=== PATIENT | male | born 1955 | race Hispanic/Latino ===

== ENCOUNTER 2017-06-29 11:42 | Emergency (ER) | payer OTHER ==
[2017-06-29 11:43] VITALS: BMI 27.3
[2017-06-29 11:51] VITALS: TEMP 98
--- NOTE | 2017-06-29 12:09 | ED PDOC ---
Arrival/HPI - General Chief Complaint: Back Pain Time Seen by Provider: 06/29/17 11:48 - History of Present Illness Narrative History of Present Illness (Text): 06/29/17 12:05 Patient is a 61 year old male with a past medical history of A Fib, CHF, and L4/ L5 disc herniation presents to the Emergency department complaining of back pain. Patient says he was bent over lifting a heavy box when he heard a pop and had sudden, sharp, 10/10 pain in his right low back. Patient says it now causes severe pain to try and sit up straight and he remains hunched over. Patient says the pain radiates down his right leg toward his calf. He also admits to numbness under his right 2nd-4th toes, however that is not new to him. Patient says he has a history of L4/L5 disc herniation which causes chronic back pain. Patient takes oxycodone and ultram as well as epidural injections for pain management. Patient denies lower extremity weakness, and numbness/tingling other than that mentioned above. PMH: A Fib, CHF, L4/L5 disc herniation, GERD, anemia Meds: Iron, Carvedilol, Nexium Allergies: denies SH: smokes 1 PPD on and off since 21 years old, denies tobacco and recreational drug use Past Medical History - Past History Past History: No Previous - Infectious Disease Hx of Infectious Diseases: None - Tetanus Immunization Tetanus Immunization: Unknown - Cardiac Hx Cardiac Disorders: Yes Hx Atrial Fibrillation: Yes Hx Pacemaker: No - Pulmonary Hx Respiratory Disorders: Yes Hx Chronic Obstructive Pulmonary Disease (COPD): Yes Other/Comment: X smoker - Quit 3 years ago. Smoked 1ppd. - Neurological Hx Paralysis: No - HEENT Hx HEENT Disorder: No - Renal Hx Renal Disorder: No - Endocrine/Metabolic Hx Endocrine Disorders: No - Hematological/Oncological Hx Blood Disorders: Yes Hx Anemia: Yes Hx Blood Transfusions: Yes Hx Blood Transfusion Reaction: No - Integumentary Hx Dermatological Disorder: No - Musculoskeletal/Rheumatological Hx Musculoskeletal Disorders: Yes Hx Back Pain: Yes - Gastrointestinal Hx Gastrointestinal Disorders: Yes Hx Gall Bladder Disease: Yes Other/Comment: Gallstones - Genitourinary/Gynecological Hx Genitourinary Disorders: No - Psychiatric Hx Emotional Abuse: No Hx Physical Abuse: No Hx Substance Use: No - Surgical History Other/Comment: left arm surgery, b/l hernia repair. - Anesthesia Hx Anesthesia: No Hx Anesthesia Reactions: No Hx Malignant Hyperthermia: No - Suicidal Assessment Feels Threatened In Home Enviroment: No Family/Social History Family/Social History: Unknown Family HX Smoking Status: Former Smoker Hx Alcohol Use: No Hx Substance Use: No Allergies/Home Meds Allergies/Adverse Reactions: Allergies No Known Allergies Allergy (Verified 03/29/16 09:02) Home Medications: Home Meds Medication Instructions Recorded Confirmed Oxycodone Hydrochloride [Oxycodone] 1 tab PO Q6H PRN 12/05/14 06/29/17 Eszopiclone [Lunesta] 3 mg PO HS 06/29/17 06/29/17 traMADol [Ultram] 1 tab PO Q6 06/29/17 06/29/17 Review of Systems - Physician Review All systems were reviewed & negative as marked: Yes - Review of Systems Constitutional: Normal Respiratory: Normal. absent: SOB, Cough Cardiovascular: Normal. absent: Chest Pain, Palpitations, Edema Gastrointestinal: Normal. absent: Abdominal Pain, Constipation, Diarrhea, Nausea, Vomiting Genitourinary Male: Normal. absent: Dysuria, Frequency, Hematuria Musculoskeletal: Back Pain. absent: Neck Pain Skin: Normal Neurological: absent: Headache, Dizziness, Focal Weakness Physical Exam Vital Signs Temp Pulse Resp BP Pulse Ox 06/29/17 11:50 98.0 F 98 H 18 134/88 96 Temperature: Afebrile Pulse: Regular Respiratory Rate: Normal Appearance: Positive for: Well-Appearing, Non-Toxic, Uncomfortable (hunched over holding back in pain) Pain Distress: Moderate Mental Status: Positive for: Alert and Oriented X 3 - Systems Exam Head: Present: Atraumatic, Normocephalic Pupils: Present: PERRL Extroacular Muscles: Present: EOMI Conjunctiva: Present: Normal Mouth: Present: Moist Mucous Membranes Neck: Present: Normal Range of Motion. No: MIDLINE TENDERNESS, Paraspinal Tenderness Respiratory/Chest: Present: Clear to Auscultation, Good Air Exchange. No: Respiratory Distress, Accessory Muscle Use Cardiovascular: Present: Regular Rate and Rhythm, Normal S1, S2. No: Murmurs Abdomen: Present: Normal Bowel Sounds, Other (no bruits or abnormal pulsations) . No: Tenderness, Distention, Peritoneal Signs Back: Present: Midline Tenderness (lumbar spine), Paraspinal Tenderness (lumbar spine), Pain with Leg Raise Upper Extremity: Present: Normal Inspection. No: Cyanosis, Edema Lower Extremity: Present: NORMAL PULSES, Neurovascularly Intact. No: Edema, CALF TENDERNESS Neurological: Present: GCS=15, Speech Normal. No: Normal Sensory Function ( numbness under right foot) Skin: Present: Warm, Dry, Normal Color. No: Rashes Psychiatric: Present: Alert, Oriented x 3, Normal Insight, Normal Concentration Medical Decision Making ED Course and Treatment: 06/29/17 12:22 Patient given Toradol 30 mg, morphine 10 mg, flexeril mg, zofran [address] ordered 06/29/17 13:45 Ct shows degenerative spondylysis, no fractures Patient stable for discharge and pain controlled - RAD Interpretation Radiology Orders: 06/29/17 12:10 LUMBAR SPINE W/O CONTRAST [CT] Stat - Medication Orders Current Medication Orders: Discontinued Medications Cyclobenzaprine HCl (Flexeril) 10 mg PO STAT STA Stop: 06/29/17 12:01 Last Admin: 06/29/17 12:21 Dose: 10 mg Ketorolac Tromethamine (Toradol) 30 mg IVP STAT STA Stop: 06/29/17 12:19 Last Admin: 06/29/17 12:21 Dose: 30 mg MAR Pain Assessment Document 06/29/17 12:21 EWO (Rec: 06/29/17 12:21 WELIA [id number]) Pain Reassessment Is this a pain reassessment? No IVP Administration Document 06/29/17 12:21 EWO (Rec: 06/29/17 12:21 WELIA [id number]) Charges for Administration # of IVP Administrations 1 Morphine Sulfate (Morphine) 10 mg IM STAT STA Stop: 06/29/17 12:10 Last Admin: 06/29/17 12:20 Dose: 10 mg MAR Pain Assessment Document 06/29/17 12:20 EWO (Rec: 06/29/17 12:21 WELIA [id number]) Pain Reassessment Is this a pain reassessment? No Sleep Is patient sleeping during reassessment? No Presence of Pain Presence of Pain Yes Pain Scale Used Pain Scale Used Numeric Location Left, Right or Bilateral Left Description Description Constant Intensity of Pain at present 10 IM Administration Charges Document 06/29/17 12:20 EWO (Rec: 06/29/17 12:21 EWO [facility] [id number]) Injection Site MAR Injection Site Left Deltoid Charges for Administration # of IM Administrations 1 Ondansetron HCl (Zofran Odt) 8 mg PO STAT STA Stop: 06/29/17 12:13 Last Admin: 06/29/17 12:21 Dose: 8 mg - PA / [employer]OVERY OPERATOR / Resident Statement / has reviewed & agrees with the documentation as recorded. / has examined the patient and agrees with the treatment plan. Disposition/Present on Arrival - Present on Arrival Any Indicators Present on Arrival: No History of DVT/PE: No History of Uncontrolled Diabetes: No Urinary Catheter: No History of Decub. Ulcer: No History Surgical Site Infection Following: None - Disposition Have Diagnosis and Disposition been Completed?: Yes Diagnosis: Strain of right iliopsoas muscle, Back pain Disposition: HOME/ ROUTINE Disposition Time: 13:47 Patient Plan: Discharge Patient Problems: Current Active Problems Problem Status Onset Back pain Acute Strain of right iliopsoas muscle Acute Condition: STABLE Discharge Instructions (ExitCare): Muscle Strain Additional Instructions: Please follow up with your primary care physician in 2-3 days for further coordination of your care. You may continue your current pain management regimen and follow up with your pain management doctor at your soonest convenience. Please return to the Emergency department if you experience new or worsening symptoms. Forms: [employer] (Citizen Of [place]), WORK NOTE
--- NOTE | 2017-06-29 13:26 | CT ---
PROCEDURE: CT Lumbar Spine without contrast CT scan lumbar spine dated 06/29/2017 HISTORY: Low back pain COMPARISON: Comparison made with prior radiographs lumbar spine 03/29/2016 TECHNIQUE: Contiguous helical/transaxial computed tomography images were obtained of the lumbar spine without the use of intravenous contrast. Coronal and sagittal reformatted images were created and reviewed. Radiation dose: Total exam DLP = 1167.78 mGy-cm. This CT exam was performed using one or more of the following dose reduction techniques: Automated exposure control, adjustment of the mA and/or kV according to patient size, and/or use of iterative reconstruction technique. . FINDINGS: VERTEBRAE: Unremarkable. No fracture. Normal alignment. DISCS/SPINAL CANAL/NEURAL FORAMINA: L1-2: Unremarkable. L2-3: Adequate disc height. No disc herniation nor significant disc bulge. Central canal and exit foramina adequate the. L3-4: Minimal posterior disc space narrowing. Small broad-based bulge of the posterior annulus asymmetrically larger slightly on the right side than the left. Facets slightly hypertrophic. Central canal and exit foramina adequate. . L4-5: Minor posterior disc space narrowing. The small broad-based bulge of the posterior annulus extends slightly into the proximal inferior margins of both exit foramina. There is flattening of the ventral surface of the thecal sac. Central canal is adequate. Facets are slightly overgrown. Proximal exit foramina are marginal to slightly narrowed. . L5-S1: Minor posterior disc space narrowing with endplate eburnation along the superior S1 segment. Small central and bilateral slightly larger on the right than left disc bulge that flattens the ventral surface of the thecal sac again more so on the right side and appears to minimally posteriorly displaces the right-sided the descending S1 nerve root. The overall central canal appears adequate at this level. Facet joints are mildly hypertrophic. Exit foramina adequate. PARASPINAL SOFT TISSUES: Unremarkable. OTHER FINDINGS: Note made of a few scattered colonic diverticula along the sigmoid colon. There also 2 metallic clips and/or katherine seen in the pelvis adjacent to the roof of the urinary bladder. IMPRESSION: No acute fractures. Very minor multilevel degenerative spondylosis as above
[2017-06-29 14:06] VITALS: BP 123/59; PULSE 78; RESP 16; O2SAT 99
== END 2017-06-29 14:09 | disposition home or self-care (01) ==
LOC: ED 11:42
DX: S76.011A Strain of muscle, fascia and tendon of right hip, initial encounter (principal); X50.0XXA Overexertion from strenuous movement or load, initial encounter; M54.5 Low back pain; F17.210 Nicotine dependence, cigarettes, uncomplicated; I48.91 Unspecified atrial fibrillation; I50.9 Heart failure, unspecified
CPT/HCPCS: 72131; 96372; 96374; 99282; J1885; J2270